=== PATIENT | female | born 1995 | race Caucasian/White ===

== ENCOUNTER 2020-10-06 03:52 | Observation (INO) | payer OTHER ==
[~2020-10-06] VITALS: Ht 167.6 cm; Wt 65.4 kg
--- NOTE | 2020-10-06 04:17 | NUR ---
PT PRESENTS TO ER WITH AUNT, PTS CHEIF COMPLAINT IS RIGHT LOWER ABDOMINAL PAIN, PAIN RADIATING TO REST OF ABDOMEN, PT STATES THIS STARTED AROUND 8PM, PT STATES THAT OTHER THAN ABDOMINAL PAIN SHE ALSO WAS SWEATING PROFUSELY EARLIER BUT NOT RIGHT NOW, PT A/OX4
[2020-10-06] MEDS ORDERED: ONDANSETRON 2MG/ML, 2ML ONE ×2 (04:23→08:10)
[2020-10-06] MEDS ORDERED: PROMETHAZINE 25 MG/ML, 1ML ONE (04:23)
[2020-10-06] MEDS ORDERED: MORPHINE SULFATE 4 MG/ML, 1ML ONE (04:23)
[2020-10-06] MEDS ORDERED: PROMETHAZINE 25 MG/ML, 1ML IM ONE (04:30)
[2020-10-06] MEDS ORDERED: SODIUM CHLORIDE 0.9% 1,000ML IVBOLUS ONE (04:30)
[2020-10-06] MEDS ORDERED: ONDANSETRON 2MG/ML, 2ML IVPush ONE (04:30)
[2020-10-06] MEDS ORDERED: MORPHINE SULFATE 4 MG/ML, 1ML IVPush PRN ×2 (04:30→06:30)
[2020-10-06] MEDS ORDERED: SODIUM CHLORIDE FLUSH 10ML SYR IVF ONE (04:30)
[2020-10-06 04:41] LABS: BASOPHILS % (AUTO) 1 % (0-1); EOSINOPHILS % (AUTO) 0 % (1-7); LYMPHOCYTES % (AUTO) 6 % (22-44); MEAN CORPUSCULAR HEMOGLOBIN 31.4 pg (27.0-34.8); MEAN CORPUSCULAR HGB CONC 33.9 g/dL (32.4-35.8); MEAN PLATELET VOLUME 10.2 fL (7.4-10.4); MONOCYTES % (AUTO) 6 % (2-9); NEUTROPHILS % (AUTO) 88 % (42-75); PLATELET COUNT 183 x10^3/uL (130-400); RED BLOOD COUNT 4.55 x10^6/uL (3.82-5.3); RED CELL DISTRIBUTION WIDTH 13.4 % (9.6-15.2)
[2020-10-06 04:49] LABS: ALANINE AMINOTRANSFERASE 23 U/L (12-78); ALBUMIN 3.6 g/dL (3.4-5.0); ANION GAP 7 mmol/L (5-15); CALCIUM 8.6 mg/dL (8.5-10.1); CHLORIDE 102 mmol/L (98-107); CREATININE 0.78 mg/dL (0.55-1.02)
[2020-10-06 04:54] LABS: ALKALINE PHOSPHATASE 56 U/L (45-117); BILIRUBIN,TOTAL 0.5 mg/dL (0.2-1.0); TOTAL PROTEIN 7.8 g/dL (6.4-8.2)
[2020-10-06] MEDS ORDERED: PIPERACILLIN/TAZO 3.375 GM in DEXTROSE 5% 50 ML IVPB ONE (06:00)
[2020-10-06] MEDS ORDERED: OMNIPAQUE 350 MG/ML, 100ML BOTTLE ONE (06:15)
[2020-10-06] MEDS ORDERED: ONDANSETRON 2MG/ML, 2ML IVPush PRN ×2 (06:30→10:00)
[2020-10-06] MEDS ORDERED: SODIUM CHLORIDE 0.9% 1,000 ML IV ONE (06:30)
[2020-10-06] MEDS ORDERED: SODIUM CHLORIDE FLUSH 10ML SYR IVF PRN (06:30)
--- NOTE | 2020-10-06 07:01 | NUR ---
BEDSIDE REPORT RECEIVED FROM VINH LOPEZ
[2020-10-06] MEDS ORDERED: EPINEPHRINE 1 MG/ML, 1ML ONE (07:07)
[2020-10-06] MEDS ORDERED: BUPIVACAINE/PF 0.5% ONE (07:07)
[2020-10-06] MEDS ORDERED: FENTANYL PF 250 MCG/5ML ONE (07:19)
[2020-10-06] MEDS ORDERED: MIDAZOLAM 1 MG/ML, 2ML ONE (07:19)
[2020-10-06] MEDS ORDERED: DOCU100C33 PO (07:47)
[2020-10-06] MEDS ORDERED: OXYC5TAB2 PO (07:47)
[2020-10-06] MEDS ORDERED: ACET325T26 PO (07:47)
[2020-10-06] MEDS ORDERED: IBUP-1222 PO (07:47)
[2020-10-06] MEDS ORDERED: CEFOTETAN 2 GM ONE (07:55)
[2020-10-06] MEDS ORDERED: BUPIVACAINE/PF-EPI 0.5% 1:200K IM ONE (08:00)
[2020-10-06] MEDS ORDERED: BUPIVACAINE/PF-EPI 0.5% 1:200K INFIL ONE (08:00)
[2020-10-06] MEDS ORDERED: ROCURONIUM 10MG/ML,5ML ONE (08:10)
[2020-10-06] MEDS ORDERED: GLYCOPYRROLATE 0.2MG/1ML, 5ML ONE (08:10)
[2020-10-06] MEDS ORDERED: CEFAZOLIN 1,000 MG ONE (08:10)
[2020-10-06] MEDS ORDERED: NEOSTIGMINE 1 MG/ML, 10ML ONE (08:10)
[2020-10-06] MEDS ORDERED: SUCCINYLCHOLINE 20 MG/ML, 10ML ONE (08:10)
[2020-10-06] MEDS ORDERED: PROPOFOL 10 MG/ML, 20ML ONE (08:10)
[2020-10-06 08:19] LABS: MICROSCOPIC NOT IND
[2020-10-06] MEDS ORDERED: KETOROLAC 30 MG/1 ML ONE (08:27)
[2020-10-06] MEDS ORDERED: HYDROmorphone 1 MG/ML, 1ML INJ IVPush PRN (09:00)
[2020-10-06] MEDS ORDERED: DIPHENHYDRAMINE 50 MG/ML, 1ML IVPush PRN ×2 (09:00→10:00)
[2020-10-06] MEDS ORDERED: PROMETHAZINE 25 MG/ML, 1ML IVPush PRN (09:00)
[2020-10-06] MEDS ORDERED: hydrALAzine 20 MG/ML, 1ML IV PRN (09:00)
[2020-10-06] MEDS ORDERED: HALOPERIDOL 5 MG/ML IV PRN (09:00)
[2020-10-06] MEDS ORDERED: LABETALOL 5MG/ML, 20ML IV PRN (09:00)
[2020-10-06] MEDS ORDERED: OXYcodone 5 MG/5 ML ORAL.SOL UDC PO PRN ×2 (09:00→10:00)
[2020-10-06] MEDS ORDERED: MEPERIDINE/PF 25MG/0.5ML IVPush PRN (09:00)
[2020-10-06] MEDS ORDERED: ACETAMINOPHEN 325 MG TABLET PO PRN (09:00)
[2020-10-06] MEDS ORDERED: FENTANYL PF 100 MCG/2ML IV PRN (09:00)
[2020-10-06] MEDS ORDERED: ENOXAPARIN 40 MG/0.4 ML SQ SCH ×2 (10:00→19:10)
[2020-10-06] MEDS ORDERED: KETOROLAC 30 MG/1 ML IV PRN (10:00)
[2020-10-06] MEDS ORDERED: HYDROmorphone 2 MG/ML, 1ML IV PRN (10:00)
[2020-10-06 11:17] VITALS: BP 105/78
[2020-10-06 13:30] VITALS: BP 103/67
== END 2020-10-06 13:55 | disposition home or self-care (01) ==
LOC: ED 05:22 → INTOOBSV 06:10 → EDIP 06:10 → 4NE 09:10
PROVIDERS: ADMIT Student in an Organized Health Care Education/Training Program; ATTEND Student in an Organized Health Care Education/Training Program
DX: K35.80 Unspecified acute appendicitis (principal); U07.1 COVID-19
CPT/HCPCS: 36415; 44970; 74177; 80053; 81003; 83690; 84703; 85025; 87635; 88304; 96365; 96372; 96375; 99285; G0378; J0171; J0330; J1885; J2250; J2270; J2405; J2543; J2550; J2704; J2710; J3010; J7030; Q9967; S0020; J0690